=== PATIENT | male | born 1990 | race Caucasian/White ===

== ENCOUNTER 2016-11-20 23:53 | Emergency (ER) | payer BC, OTHER ==
[2016-11-21 00:54] LABS: URINE BILIRUBIN 1+ (NEGATIVE); URINE BLOOD NEGATIVE (NEGATIVE); URINE GLUCOSE (UA) NORMAL (NORMAL); URINE KETONE 2+ (NEGATIVE); URINE LEUKOCYTE ESTERASE TRACE (NEGATIVE); URINE NITRATE NEGATIVE (NEGATIVE); URINE PROTEIN 2+ (NEGATIVE)
[2016-11-21 00:56] LABS: BASO % 0.2 % (0.2-1.2); EOS # 0.2 10_X3_uL (0.0-0.5); EOS % 1.6 % (0.8-7.0); GRAN # 6.7 10_X3_uL (1.8-5.4); GRAN % 73.5 % (34.0-67.9); HEMATOCRIT 37.8 % (40-51); HEMOGLOBIN 13.3 g/dL (13.7-17.5); LYMPH # 1.6 10_X3_uL (1.3-3.6); LYMPH % 17.9 % (21.8-53.1); MEAN CORPUSCULAR HEMOGLOBIN 27.7 pg (27.0-33.0); MEAN CORPUSCULAR HGB CONC 35.2 g/dL (32.0-36.0); MEAN CORPUSCULAR VOLUME 78.6 fL (79-92); MEAN PLATELET VOLUME 10.4 fl (7.5-11.5); MONO # 0.6 10_X3_uL (0.3-0.8); MONO % 6.8 % (5.3-12.2); PLATELET COUNT 159 x10_3/uL (163-337); RED BLOOD COUNT 4.81 x10_6/uL (4.6-6.1); RED CELL DISTRIBUTION WIDTH 12.9 % (11.6-14.4); WHITE BLOOD COUNT 9.2 x10_3/uL (4.2-9.1)
[2016-11-21 00:57] LABS: ARTERIAL BLOOD GAS BASE EXCESS -0.3 mmol/L (-2.0-3.0); ARTERIAL BLOOD GAS HCO3 23.8 mmol/L (22-26); ARTERIAL BLOOD GAS PCO2 39.3 mmHg (35-48)
[2016-11-21 01:05] LABS: URINE SQUAMOUS EPITHELIAL CELL 0-10 /[HPF] (NONE SEEN); URINE WBC 0-5 /[HPF] (0-3)
[2016-11-21 01:06] LABS: URINE BACTERIA TRACE (NONE SEEN); URINE MUCUS 1+
[2016-11-21 01:09] LABS: ACETAMINOPHEN < 15.0 ug/ml (10.0-30.0); ALBUMIN 4.4 gm/dL (3.4-5.0); ALKALINE PHOSPHATASE 68 U/L (50-136); ALT/SGPT 107 U/L (7.53-40.17); AST/SGOT 105 U/L (6.66-35.34); BILIRUBIN,TOTAL 0.76 mg/dL (0.0-1.0); BLOOD UREA NITROGEN 17 mg/dL (7-18); CALCIUM 10.1 mg/dL (8.7-10.7); CARBON DIOXIDE 24 mmol/L (21-32); CREATINE KINASE 106 U/L (35-232); CREATININE 0.8 mg/dL (0.6-1.3); ETHYL ALCOHOL < 10 mg/dl; GLUCOSE,RANDOM 185 mg/dL (70-99); LIPASE 16 U/L (6.75-60.75); POTASSIUM 4.1 mmol/L (3.5-5.1); SODIUM 139 mmol/L (136-145); TOTAL PROTEIN 7.9 gm/dL (6.4-8.2)
[2016-11-21 01:12] LABS: CKMB 4.2 ng/ml (0.0-5.0)
[2016-11-21 01:16] LABS: TROP-I < 0.30 NG/ML (0.00-0.30)
[2016-11-21 01:41] LABS: THYROID STIMULATING HORMONE 0.462 uIU/mL (0.34-4.82)
[2016-11-21 01:42] LABS: FREE T4 1.15 ng/dL (0.93-1.7)
== END 2016-11-21 03:30 | disposition short-term general hospital (02) ==
LOC: ER 23:53
PROVIDERS: Emergency Medicine
DX: R41.0 Disorientation, unspecified (principal); E11.9 Type 2 diabetes mellitus without complications; I10 Essential (primary) hypertension; K21.9 Gastro-esophageal reflux disease without esophagitis; G43.909 Migraine, unspecified, not intractable, without status migrainosus; R53.1 Weakness; Z88.1 Allergy status to other antibiotic agents; Z88.2 Allergy status to sulfonamides; Z88.8 Allergy status to other drugs, medicaments and biological substances; Z79.899 Other long term (current) drug therapy; Z79.4 Long term (current) use of insulin; Z79.1 Long term (current) use of non-steroidal anti-inflammatories (NSAID)
CPT/HCPCS: 36415; 36600; 70450; 80053; 80307; 81001; 82140; 82550; 82553; 82803; 82962; 83605; 83690; 84439; 84443; 85025; 87040; 93005; 96365; 96375; 99285-25; G0480; J7050